=== PATIENT | male | born 1950 | race Caucasian/White ===

== ENCOUNTER → 2020-09-02 | Outpatient (CLI) | payer MEDICARE ==
--- NOTE | 2020-09-26 08:22 | MR ---
EXAMINATION TYPE: MR Prostate wo/w con DATE OF EXAM: 09/02/2020 COMPARISON: Outside MRI prostate July 31, 2019 IMAGE QUALITY: . INDICATION: Prostate cancer PSA: 5.64 ng/ml January 2019 increased to 7 after this. Recent Biopsy and Date: January 12, 2019 as adenocarcinoma Michele score 3+4 = 7 right apex tumor length 8 mm involving 40%, adenocarcinoma Michele score 3+4 = 7 right lateral apex tumor length 8 mm involv ing 50%r TECHNIQUE: Examination was performed using a 3T MRI without an endorectal coil. Multiparametric imaging was perf ormed with T2 mutliplanar sequences, axial diffusion weighted imaging and dynamic contrast enhanced i maging, utilizing 7 mL intravenous Gadavist gadolinium contrast. FINDINGS: There is no clinically significant cancer identified. PROSTATE VOLUME: 4.5 cm SI x 3.4 cm AP x 4.5 cm LR Vol= 36 cc PSA DENSITY: 4.32 ng/ml/cc Site 1: Assessment Category:4 Size: 16 x 14 x 10 mm Location(s):right mid peripheral zone ; image 132 series 606 focal markedly hypointense lesion with m ild to moderate hyperintensity on diffusion weighted images. Transitional zone overall heterogeneous without suspicious new areas of T2 hypointensity. Small heterogeneous areas with obscured margins remain present. Seminal vesicles symmetric and within normal limits. Prostatic capsule is maintained. Neurovascular b undle intact. Bladder shows poor distention with minimal trabeculation. Diverticula are seen in visualized portion of sigmoid colon. Visualized osseous structures are intact . IMPRESSION: A focus of clinically significant cancer is identified. Highest Assessment Category: 4 MRI Stage: T2 N0 M0 based on review of pelvic images. False negative rates for MRI range from 5-20% depending on risk profile. Stable similar suspicious lesion right mid prostate peripheral zone from outside MRI. Assessment Categories: 1 ? Very low (clinically significant cancer is highly unlikely to be present) 2 ? Low (clinically significant cancer is unlikely to be present) 3 ? Intermediate (the presence of clinically significant cancer is equivocal) 4 ? High (clinically significant cancer is likely to be present) 5 ? Very high (clinically significant cancer is highly likely to be present) r
== END | disposition home or self-care (01) ==
LOC: RADMRIMAIN 10:48
PROVIDERS: ATTEND Urology
DX: C61 Malignant neoplasm of prostate (principal)
CPT/HCPCS: 72197; A9585